=== PATIENT | male | born 1950 | race Caucasian/White ===

== ENCOUNTER → 2016-09-12 | Outpatient (CLI) | payer OTHER ==
--- NOTE | 2016-09-12 15:44 | MR ---
MRI of the Brain (Without Contrast) History: Migraine headache x 4 months without aura, 346.10. Technique: T1-weighted images were acquired axially and sagittally from the foramen magnum to the ve rtex. Axial fast inversion recovery, fast T2-weighted, GRE and diffusion-weighted axial images were obtained without contrast. Findings: There are scattered bilateral small isovolumic T2-weighted foci of white matter hyperintens ity in the periventricular deep and subcortical white matter, of in nature often seen in elderly ochoa ents, often hypertensive or diabetic patients. None of the lesions are bright on the diffusion study or are associated with hemorrhage on the gradient study. There is age-appropriate mild cerebral atrop hy. The ventricles, cisterns, and sulci are consistent with each other, without evidence for hydrocephalu s. There is no midline shift, cerebral edema, or epidural/subdural hematomas. No intracranial hemorrh age or mass. Diffusion-weighted sequence demonstrates no acute infarct. Cerebellar tonsils are in nor mal position. Pituitary gland is normal in size. Normal signal flow-void in the superior sagittal sin us, basilar artery, and bilateral internal carotid arteries indicating patency. The distal right vert ebral artery is dominant. Paranasal sinuses and mastoid air cells are clear. Impression: 1. Typical microvascular ischemic change. Is this patient hypertensive or diabetic? 2. No mass.
== END ==
LOC: FIMAGING 13:00
PROVIDERS: ATTEND Physician Assistant Medical
DX: G43.011 Migraine without aura, intractable, with status migrainosus (principal)